=== PATIENT | male | born 1950 | race Caucasian/White ===

== ENCOUNTER 2016-08-17 08:38 | Outpatient (CLI) | payer OTHER | END 2016-08-17 08:39 | disposition critical access hospital (66) | DX: R53.1 Weakness (principal); W08.XXXA Fall from other furniture, initial encounter; Y92.009 Unspecified place in unspecified non-institutional (private) residence as the place of occurrence of the external cause | CPT/HCPCS: A0425; A0427 ==

== ENCOUNTER 2016-08-17 09:09 | Emergency (ER) | payer OTHER ==
[2016-08-17] MEDS ORDERED: SODIUM CHLORIDE 0.9% 1,000 ML IV ONE ×2 (09:33→10:56)
[2016-08-17] MEDS ORDERED: MECLIZINE 12.5 MG TABLET PO STA (09:34)
[2016-08-17] MEDS ORDERED: LORazepam 2 MG/ML SYRINGE IVP STA (09:36)
[2016-08-17] MEDS ORDERED: MECLIZINE 12.5 MG TABLET PO ONE (09:56)
[2016-08-17] MEDS ORDERED: LORazepam 2 MG/ML SYRINGE ONE (09:58)
== END 2016-08-17 14:39 | disposition home or self-care (01) ==
DX: R53.1 Weakness (principal); F10.20 Alcohol dependence, uncomplicated; W01.0XXA Fall on same level from slipping, tripping and stumbling without subsequent striking against object, initial encounter; Y92.013 Bedroom of single-family (private) house as the place of occurrence of the external cause; I44.4 Left anterior fascicular block; R94.31 Abnormal electrocardiogram [ECG] [EKG]; E78.00 Pure hypercholesterolemia, unspecified; F17.200 Nicotine dependence, unspecified, uncomplicated
CPT/HCPCS: 36415; 70450; 71010; 80053; 80320; 81003; 82550; 83690; 83735; 85025; 93005; 93010; 96361; 96374; 99284; A9270; J2060

== ENCOUNTER 2016-11-02 15:03 | Emergency (ER) | payer OTHER ==
[2016-11-02] MEDS ORDERED: SODIUM CHLORIDE 0.9% 1,000 ML IV ONE (15:25)
--- NOTE | 2016-11-02 15:27 | ED Physician Documentation ---
PD HPI HEAD INJURY - Stated complaint Stated Complaint: FALL - Chief complaint Chief Complaint: Neuro - History obtained from History obtained from: Patient, Friend (neighbor, who checked in on patient and found him down on floor with large laceration for upper forehead. Patient confused and not answering questions coherently.), EMS - History of Present Illness Mechanism of head injury: Fell (unknown reason as patient does not remember it.) Where head injury occurred: Home (he lives at home and does own ADLs. Neighbors check in on him periodically.) Timing - onset: Unknown Location of injury: Front (forehead) Quality of pain: Pain Associated symptoms: No: Nausea / vomiting, Neck pain, Paresthesias Symptoms improve with: Rest Symptoms worsen with: Palpation Contributing factors: Intoxicated (he says he drinks daily). No: Anticoagulated Recently seen: Not recently seen (seen in ED in July with weakness and fall, with elevated alcohol level and some shakiness.) Review of Systems Unable to obtain: Confused Cardiac: denies: Chest pain / pressure Respiratory: denies: Cough, Wheezing GI: denies: Abdominal Pain, Vomiting, Diarrhea, Bloody / black stool Musculoskeletal: denies: Neck pain, Back pain Neurologic: reports: Head injury. denies: Focal weakness, Numbness, Headache PD PAST MEDICAL HISTORY - Past Medical History Cardiovascular: High cholesterol GI: Other Musculoskeletal: Chronic back pain - Past Surgical History Past Surgical History: Yes Ortho: Spine surgery - Present Medications Home Medications: Ambulatory Orders Medication Instructions Recorded Confirmed No Known Home Medications [No 08/17/16 08/17/16 Known Home Medications] - Allergies Allergies/Adverse Reactions: Allergies Allergy/AdvReac Type Severity Reaction Status Date / Time No Known Drug Allergies Allergy Verified 08/17/16 09:23 - Living Situation Living Situation: reports: Alone Living Arrangement: reports: At home - Social History Does the pt smoke?: Yes Smoking Status: Current every day smoker Does the pt drink ETOH?: Yes ETOH Use: Beer Does the pt have substance abuse?: No - Family History Family history: reports: Unknown PD ED PE NORMAL - Vitals Vital signs reviewed: Yes - General General: Other (poor interaction with answering just simple questions with simple answers. Smell of alcholol on breath. He does have 4 cm laceration right frontal scalp so concern for concussive effect as well. ). No: Well developed/ nourished (frail and cachectic) - HEENT HEENT: PERRL. No: Dentition benign (poor dentition but no apparent new injury) - Neck Neck: Supple, no meningeal sign, No adenopathy, Other (he has spontaneous movement of the neck up and down without apparent pain. He is placed in cervical collar. ) - Cardiac Cardiac: RRR (mild tachycardia), No murmur - Respiratory Respiratory: Clear bilaterally, Other (no obvious chestwall deformity nor tenderness. ) - Abdomen Abdomen: Soft, Non tender - Male Male : Deferred - Rectal Rectal: Deferred - Back Back: No CVA TTP, No spinal TTP - Derm Derm: Normal color, Warm and dry - Extremities Extremities: No tenderness to palpate, Normal ROM s pain, No edema - Neuro Neuro: No motor deficit (he is wriggling around on cart, moving legs side to side and flexing at knees/hips. Not really following commands. ), No sensory deficit. No: Alert and oriented X 3 (oriented to person, not place nor time. ) Results - Vitals Vitals: Vital Signs - 24 hr 11/02/16 11/02/16 11/02/16 15:15 16:13 17:08 Temperature 36.5 C Heart Rate 117 H 90 91 Respiratory 20 18 16 Rate Blood Pressure 107/72 116/74 115/79 O2 Saturation 100 100 100 11/02/16 18:34 Temperature Heart Rate 70 Respiratory 16 Rate Blood Pressure 113/80 O2 Saturation 100 Oxygen O2 Source Room air - Labs Labs: Laboratory Tests 11/02/16 11/02/16 11/02/16 15:12 15:35 15:35 WBC 5.1 RBC 3.92 L Hgb 14.1 Hct 41.4 L MCV 105.5 H MCH 36.1 H MCHC 34.2 RDW 14.0 Plt Count 72 L MPV 7.6 Neut # 3.9 Lymph # 0.7 L Kimble # 0.5 Eos # 0.0 Baso # 0.1 Absolute Nucleated RBC 0.00 Nucleated RBCs 0.0 Sodium 137 Potassium 4.4 Chloride 100 L Carbon Dioxide 25 Anion Gap 12.0 BUN 7 Creatinine 0.6 Estimated GFR (MDRD) 134 Glucose 172 H POC Whole Bld Glucose 198 H Calcium 8.3 L Magnesium 1.9 Total Bilirubin 0.9 AST 117 H ALT 60 Alkaline Phosphatase 369 H Total Creatine Kinase Total Protein 6.3 L Albumin 3.3 Globulin 3.0 Albumin/Globulin Ratio 1.1 Lipase 14 L Ethyl Alcohol 363.0 11/02/16 15:35 WBC RBC Hgb Hct MCV MCH MCHC RDW Plt Count MPV Neut # Lymph # Kimble # Eos # Baso # Absolute Nucleated RBC Nucleated RBCs Sodium Potassium Chloride Carbon Dioxide Anion Gap BUN Creatinine Estimated GFR (MDRD) Glucose POC Whole Bld Glucose Calcium Magnesium Total Bilirubin AST ALT Alkaline Phosphatase Total Creatine Kinase 162 Total Protein Albumin Globulin Albumin/Globulin Ratio Lipase Ethyl Alcohol - Rads (name of study) head CT Radiology: Prelim report reviewed, EMP read contemporaneously (no ICH nor acute injury seen) spine CT Radiology: Prelim report reviewed (C1 bilateral laminar fractures with forward displacement of C1 on C2 on lateral view. ) PD MEDICAL DECISION MAKING - ED course Complexity details: reviewed results (CT head without bleed/injury. However C- spine with C1 unstable fracture, with intact spinal neuro exam (altered mentation on exam). ), re-evaluated patient (Patient given some Ativan for sedation so that he is not wriggling around. He is still with good airway and ventilation. He is lying still. Collar remains in place. Neuro exam still good in extremities. ), considered differential, d/w patient (to the best of his understanding with the intoxication and possible concussive effect. ), d/w library consultant (Dr. Quiroz, Spine surgery at [facility], to transfer to their ER for admission and surgery.) Departure - Departure Disposition: 02 Transfer Acute Care Hosp Clinical Impression: Cervical spine fracture Qualifiers: Encounter type: initial encounter Cervical vertebra fracture level: C1 Fracture type: closed Fracture morphology: other fracture Fracture alignment: displaced Qualified Code(s): S12.090A - Other displaced fracture of first cervical vertebra, initial encounter for closed fracture Scalp laceration Qualifiers: Encounter type: initial encounter Qualified Code(s): S01.01XA - Laceration without foreign body of scalp, initial encounter Alcohol intoxication Qualifiers: Complication of substance-induced condition: uncomplicated Qualified Code(s): F10.120 - Alcohol abuse with intoxication, uncomplicated Condition: Stable Record reviewed to determine appropriate education?: Yes Discharge Date/Time: 11/02/16 18:30
[2016-11-02] MEDS ORDERED: LORazepam 2 MG/ML SYRINGE IVP STA ×2 (15:42→15:53)
[2016-11-02] MEDS ORDERED: LORazepam 2 MG/ML SYRINGE ONE ×2 (15:43→15:54)
[2016-11-02 15:45] LABS: BASOPHILS # (AUTO) 0.1 10^3/uL (0.0-0.1); EOSINOPHILS % (AUTO) 0.1 %; HCT - HEMATOCRIT 41.4 % (42.0-52.0); HGB - HEMOGLOBIN 14.1 g/dL (14.0-18.0); LYMPHOCYTES # (AUTO) 0.7 10^3/uL (1.5-3.5); LYMPHOCYTES % (AUTO) 13.5 %; MEAN CORPUSCULAR HEMOGLOBIN 36.1 pg (27.0-31.0); MEAN CORPUSCULAR HGB CONC 34.2 g/dL (32.0-36.0); MEAN CORPUSCULAR VOLUME 105.5 fL (80.0-94.0); MEAN PLATELET VOLUME 7.6 fL (7.4-11.4); MONOCYTES # (AUTO) 0.5 10^3/uL (0.0-1.0); MONOCYTES % (AUTO) 9.8 %; NEUTROPHILS # (AUTO) 3.9 10^3/uL (1.5-6.6); NEUTROPHILS % (AUTO) 75.6 %; RED BLOOD COUNT 3.92 10^6/uL (4.70-6.10); UNCORRECTED WHITE BLOOD COUNT 5.1 x10^3/uL; WHITE BLOOD COUNT 5.1 x10^3/uL (4.8-10.8)
[2016-11-02 15:55] LABS: ALBUMIN/GLOBULIN RATIO 1.1 (1.0-2.2); BILIRUBIN,TOTAL 0.9 mg/dL (0.2-1.0); CALCIUM 8.3 mg/dL (8.5-10.3); CREATININE 0.6 mg/dL (0.6-1.2); MAGNESIUM 1.9 mg/dL (1.7-2.8); POTASSIUM 4.4 mmol/L (3.5-5.0); TOTAL PROTEIN 6.3 g/dL (6.7-8.2)
[2016-11-02] MEDS ORDERED: BUPIVACAINE 0.5%-EPI 1:200000 PF 10 ML VIAL SUBQ STA (15:59)
[2016-11-02] MEDS ORDERED: BUPIVACAINE 0.5%-EPI 1:200000 PF 30 ML VIAL ONE (16:22)
--- NOTE | 2016-11-02 16:35 | CT Preliminary Report ---
Exam: CT Head W/O IMPRESSION: 1. No acute intracranial CT abnormality. No evidence of hemorrhage or mass effect. 2. There is generalized volume loss. 3. There are right scalp lacerations without evidence of underlying fracture. [facility] SITE ID: [id number]
--- NOTE | 2016-11-02 16:38 | CT Report ---
EXAM: CT HEAD EXAM DATE: 11/02/2016 04:15 PM. CLINICAL HISTORY: Confusion COMPARISON: 08/17/2016. TECHNIQUE: Multiaxial CT images were obtained from the foramen magnum to the vertex. IV contrast: Non e. Reformats: Coronal. In accordance with CT protocol optimization, one or more of the following dose reduction techniques w ere utilized for this exam: automated exposure control, adjustment of mA and/or KV based on patient s ize, or use of iterative reconstructive technique. FINDINGS: Parenchyma: No intraparenchymal hemorrhage. No evidence of mass, midline shift or CT findings of acut e infarction. Li-white differentiation is distinct. Extraaxial Spaces: There is generalized volume loss. No subdural or epidural collections identified. Ventricles: The ventricles and cortical sulci are enlarged, consistent with age-related tissue loss. Sinuses: Imaged paranasal sinuses, orbits, and mastoids show no significant abnormality. Bones: No evidence of fracture or calvarial defect. Other: There is a right lateral scalp laceration. IMPRESSION: 1. No acute intracranial CT abnormality. No evidence of hemorrhage or mass effect. 2. There is generalized volume loss. 3. There are right scalp lacerations without evidence of underlying fracture. [facility] Referring Provider Line: [phone] SITE ID: [id number]
--- NOTE | 2016-11-02 17:18 | CT Preliminary Report ---
Exam: CT Cervical Spine W/O IMPRESSION: 1. Bilateral C1 nondisplaced laminar fractures 2. Base of dens fracture with posterior displacement and angulation of the dens and distraction of fr acture fragments by approximately 4 mm. Cannot exclude involvement of the foramina transversarium. 3. Disruption of the spinolaminar line at C1-C2 with offset of approximately 1.1 cm. Additional disru ption/subluxation of the right C1-C2 facet joint. 4. C7 superior endplate compression deformity age-indeterminate with ununited anterior superior apoph ysis versus chip fracture. 5. Progressive deformity/height loss of T1 and T2 since 2012, also of indeterminate age. 6. Degenerative changes including disk space narrowing C5-C6 and multilevel degenerative facet joint arthropathy. Critical results called to and confirmed with Dr. Jolly at 16:50 on 11/02/2016 [facility] SITE ID: [id number]
--- NOTE | 2016-11-02 17:21 | CT Report ---
EXAM: CT CERVICAL SPINE WITHOUT CONTRAST DATE: 11/02/2016 04:15 PM HISTORY: Fall and hit head. COMPARISONS: 11/19/2012 TECHNIQUE: Thin-section axial images were acquired of the cervical spine without contrast. Post-proce ssing: Coronal and sagittal reformats. Other: None. In accordance with CT protocol optimization, one or more of the following dose reduction techniques w ere utilized for this exam: automated exposure control, adjustment of mA and/or KV based on patient s ize, or use of iterative reconstructive technique. FINDINGS: There are bilateral nondisplaced laminar fractures of C1. There is a fracture of C2 at the base of the dens. The dens is displaced posteriorly by approximatel y 6-7 mm with distraction of 5-6 mm. The dens is also angled posteriorly by approximately 50 degrees. There is disruption of the spinal laminar line at the C1-C2 level, with approximately 1.1 cm of anterior displacement of C2. There is disruption of the ri ght C1-C2 lateral mass articulation with lateral subluxation of C2. Cannot exclude extension of fract ure lines into the foramen transversarium, particularly on the lateral. Anterior superior endplate compression deformity of C7 progressed since 2012, age-indeterminate with ununited anterior superior apophysis versus chip fracture. Mild superior endplate compression T1 slightly increased and progressive height loss of T2 since 201 3. Degenerative disk space narrowing C5-C6 with vacuum phenomenon. Remaining disk spaces grossly well ma intained. Mild degenerative retrolisthesis C5 with respect to C6 unchanged Scattered degenerative facet joint arthropathy at multiple levels. No significant prevertebral soft tissue swelling IMPRESSION: 1. Bilateral C1 nondisplaced laminar fractures 2. Base of dens fracture with posterior displacement and angulation of the dens and distraction of fr acture fragments by approximately 4 mm. Cannot exclude involvement of the foramina transversarium. 3. Disruption of the spinolaminar line at C1-C2 with offset of approximately 1.1 cm. Additional disru ption/subluxation of the right C1-C2 facet joint. 4. C7 superior endplate compression deformity age-indeterminate with ununited anterior superior apoph ysis versus chip fracture. 5. Progressive deformity/height loss of T1 and T2 since 2012, also of indeterminate age. 6. Degenerative changes including disk space narrowing C5-C6 and multilevel degenerative facet joint arthropathy. Critical results called to and confirmed with Dr. Jolly at 16:50 on 11/02/2016 [facility] Referring Provider Line: [phone] SITE ID: [id number]
[2016-11-02 18:36] VITALS: BP 113/80
== END 2016-11-02 18:30 | disposition short-term general hospital (02) ==
LOC: ED 15:03
DX: S12.090A Other displaced fracture of first cervical vertebra, initial encounter for closed fracture (principal); S01.81XA Laceration without foreign body of other part of head, initial encounter; W01.0XXA Fall on same level from slipping, tripping and stumbling without subsequent striking against object, initial encounter; Y92.018 Other place in single-family (private) house as the place of occurrence of the external cause; F10.129 Alcohol abuse with intoxication, unspecified; E78.00 Pure hypercholesterolemia, unspecified; F17.200 Nicotine dependence, unspecified, uncomplicated
CPT/HCPCS: 36415; 70450; 72125; 80053; 80320; 82550; 83690; 83735; 85025; 96361; 96372; 96374; 99285; J2060

== ENCOUNTER 2016-11-02 18:40 | Outpatient (CLI) | payer OTHER | END 2016-11-02 18:41 | disposition short-term general hospital (02) | LOC: EMS 18:40 | PROVIDERS: ATTEND Surgery | DX: S12.000A Unspecified displaced fracture of first cervical vertebra, initial encounter for closed fracture (principal); S01.01XA Laceration without foreign body of scalp, initial encounter; X58.XXXA Exposure to other specified factors, initial encounter | CPT/HCPCS: A0425; A0426 ==

== ENCOUNTER 2018-11-25 12:35 | Outpatient (CLI) | payer OTHER ==
--- NOTE | 2018-11-25 15:39 | Mammography Report ---
Reason: RT BREAST LUMP Procedure Date: 11/25/2018 Accession Number: [id number] / [id number] Procedure: NOAH - Diagnostic Dig Bilat CPT Code: FULL RESULT: EXAM: Diagnostic Dig Bilat DATE: 11/25/2018 1:37 PM CLINICAL HISTORY: Right breast lump, tender. TECHNIQUE: (B) - Bilateral CC and MLO views were obtained. Focused right breast ultrasound with comparison images on the left was performed. The CC projections were acquired with reversible positioning. The patient was severely kyphotic, best possible images are obtained. COMPARISON: None PARENCHYMAL PATTERN: (A) - The breast(s) demonstrate(s) scattered fibroglandular densities. FINDINGS: Increased right greater than left retroareolar density is noted. There are no separate suspicious masses, calcifications, or areas of distortion. Focused right breast ultrasound reveals a wider than tall hypoechoic tissue in an organizational pattern consistent with glandular tissue with echotexture and echogenicity as well as overall distribution pattern consistent when compared to the left side. The ultrasound images are therefore of typically benign right greater than left gynecomastia. IMPRESSION: Benign findings. BI-RADS category 2. RECOMMENDATION: (CLIN) - Clinical follow-up for symptoms is recommended. BI-RADS CATEGORY: (2) - Benign Findings. STANDARD QUALIFYING STATEMENTS: 1. This examination was not reviewed with the aid of Computer-Aided Detection (CAD). 2. A negative or benign imaging report should not preclude biopsy if clinically suspicious findings are present. 3. Dense breasts may obscure an underlying neoplasm. 4. This examination was reviewed without the aid of 3D breast imaging (tomosynthesis).
== END 2018-11-25 12:36 | disposition home or self-care (01) ==
LOC: DI 12:35
PROVIDERS: ATTEND Family Medicine
DX: N63.41 Unspecified lump in right breast, subareolar (principal)
CPT/HCPCS: 76642; 77066

== ENCOUNTER 2018-12-25 07:30 | Day surgery (SDC) | payer OTHER ==
[~2018-12-25 07:30] MED LIST: CYCLOPENTOLATE 1% OPHTH DROPS 2 ML ONE; KETOROLAC 0.45% OPHTH DROPS ONE; PHENYLEPHRINE 2.5% OPHTH 2 ML DROPS ONE; PROPARACAINE 0.5% OPHTH DROPS 15 ML ONE
[2018-12-25] MEDS ORDERED: MIDAZOLAM 2 MG/2 ML VIAL IVP ONE (07:31)
[2018-12-25] MEDS ORDERED: fentaNYL 100 MCG/2 ML VIAL IVP ONE (07:31)
[2018-12-25] MEDS ORDERED: KETOROLAC 0.45% OPHTH DROPS RIGHTEYE ONE (07:40)
[2018-12-25] MEDS ORDERED: PROPARACAINE 0.5% OPHTH DROPS 15 ML RIGHTEYE ONE (07:40)
[2018-12-25] MEDS ORDERED: CYCLOPENTOLATE 1% OPHTH DROPS 2 ML RIGHTEYE ONE (07:40)
[2018-12-25] MEDS ORDERED: PHENYLEPHRINE 2.5% OPHTH 2 ML DROPS RIGHTEYE ONE (07:40)
[2018-12-25] MEDS ORDERED: LACTATED RINGERS 500 ML IV ONE (08:00)
--- NOTE | 2018-12-25 08:00 | ANESTHESIA ---
Pre-Anesthesia VS, & Labs - Diagnosis Right senile combined cataract - Procedure Right phaco with IOL implant Height 6 ft Body Mass Index 41.8 - NPO >8 hours - Lab Results Lab results reviewed: No Home Medications and Allergies Home Medications: Ambulatory Orders Loratadine [Claritin] 10 mg PO DAILY 12/24/18 Naproxen Sodium 220 mg PO BID 12/24/18 Sertraline HCl [Zoloft] 20 mg PO DAILY 12/24/18 Tamsulosin HCl [Flomax] 0.4 mg PO DAILY 12/24/18 Loratadine [Claritin] 10 mg PO DAILY 12/24/18 Naproxen Sodium 220 mg PO BID 12/24/18 Sertraline HCl [Zoloft] 20 mg PO DAILY 12/24/18 Tamsulosin HCl [Flomax] 0.4 mg PO DAILY 12/24/18 Allergies/Adverse Reactions: Allergies Allergy/AdvReac Type Severity Reaction Status Date / Time No Known Drug Allergies Allergy Verified 12/24/18 10:38 Anes History & Medical History - Anesthetic History Anesthesia Complications: reports: No previous complications Family history of Anesthesia Complications: Denies Family history of Malignant Hyperthermia: Denies - Medical History Cardiovascular: reports: None Pulmonary: reports: None Gastrointestinal: reports: None Urinary: reports: Benign prostate hypertrophy Neuro: reports: Head injury Musculoskeletal: reports: Osteoarthritis, Chronic back pain, Other Endocrine/Autoimmune: reports: None Blood Disorders: reports: None Skin: reports: None Smoking Status: Current every day smoker Psychosocial: reports: No issues indicated (Diaphragmatic hernia?) - Surgical History General: Hiatal hernia repair Orthopedic: Spine surgery, Other (Neck surgery, possible fusion) Exam General: Alert Dental: WNL Mouth Opening: Greater than 4 Fingerbreadths Neck Mobility: Limited Mallampati classification: II Thyromental Distance: greater than 6 cm Respiratory: Lungs clear Cardiovascular: Other (Occasional skipped beat) Mental/Cognitive Status: Alert/Oriented X3 Cognitive Status: Within normal limits Plan Anesthesia Type: MAC Consent for Procedure(s) Verified and Reviewed: Yes Code Status: Attempt Resuscitation ASA classification: 3-Severe systemic disease Is this case an emergency?: No
[2018-12-25] MEDS ORDERED: BRIMONIDINE 0.2% OPHTH DROPS 5 ML OPTH ONE (08:41)
[2018-12-25] MEDS ORDERED: EPINEPHrine 1 MG/ML AMP IVP ONE (08:41)
[2018-12-25] MEDS ORDERED: BSS/LIDOCAINE/EPINEPHRINE 1 ML SYRINGE IO ONE (08:42)
[2018-12-25] MEDS ORDERED: TIMOLOL 0.5% OPHTH DROPS OPTH ONE (08:42)
[2018-12-25] MEDS ORDERED: VANCOMYCIN OPHTHALMI 8MG/0.8ML 8 MG/0.8 ML SYRINGE IO ONE ×2 (08:42→10:54)
[2018-12-25] MEDS ORDERED: CHONDR SULF/HYALURONATE SYRINGE IO ONE (08:42)
[2018-12-25] MEDS ORDERED: TRIAMCIN/MOXIFLOX OPHTHALMIC 0.6 ML VIAL IO ONE ×2 (08:43→10:52)
[2018-12-25 09:23] VITALS: BP 113/65
--- NOTE | 2018-12-25 09:36 | OPERATIVE REPORT ---
DATE OF SERVICE: 12/25/2018 Physician: Pa Spence MD PREOPERATIVE DIAGNOSIS: Visually significant cataract, right eye. This was his first cataract surgery. This was a complex surgery due to use of Flomax and likelihood of intraoperative floppy iris syndrome, necessitating the use of a Malyugin ring. POSTOPERATIVE DIAGNOSIS: Visually significant cataract, right eye. This was his first cataract surgery. This was a complex surgery due to use of Flomax and likelihood of intraoperative floppy iris syndrome, necessitating the use of a Malyugin ring. OPERATIVE PROCEDURE: Phacoemulsification with posterior chamber intraocular lens implant, right eye. SURGEON: Pa Spence MD ANESTHESIA: Monitored anesthesia care. COMPLICATIONS: None. OPERATIVE INDICATIONS: This is a 68-year-old man with progressive vision loss in the right eye due to 3-4+ nuclear sclerotic cataract. Best corrected visual acuity was 20/40, with glare to hand motion vision in the right eye. Indications for surgery are overall decrease in vision, difficulty seeing words on a computer screen, difficulty reading, difficulty seeing words, closed caption or game scores on TV, difficulty seeing street signs, difficulty driving in low light or at night, difficulty driving at night because of headlights from other vehicles, difficulty with glare or bright lights in any situation, and difficulty tracking a golf ball and decreased acuity with firearms. He was consented at length concerning risks and benefits of cataract surgery, after which he expressed a desire to proceed with surgery. OPERATIVE PROCEDURE: Patient was taken to OR #3 and placed under monitored anesthesia care. A surgical timeout was conducted confirming correct patient, correct procedure, and correct surgical site. He was given topical anesthesia and then prepped and draped in the usual sterile fashion. The eye was entered at the 12 and 9 o'clock positions. Intracameral Shugarcaine was injected into the anterior chamber, followed by Viscoat. A Malyugin Ring was inserted into the anterior chamber and engaged the pupillary margin at 4 points to enlarge the pupil and stabilize the iris. A continuous-tear curvilinear capsulorrhexis was performed. The nucleus was hydrodissected and phacoemulsified. The cortex was evacuated using automated infusion and aspiration. Provisc was injected in the capsular bag and a 21.5 diopter intraocular lens inserted in the bag. The Malyugin ring that had been inserted previously was disengaged from the pupil margin and removed from the anterior chamber. Approximately 0.8 mL of a mixture of triamcinolone, moxifloxacin and vancomycin was injected subconjunctivally in the superior quadrant for infection and inflammation prophylaxis. I and A was used to evacuate the viscoelastic materials. The eye was inflated to physiologic pressure using balanced salt solution and found to be watertight. Patient was taken from the operating room in good condition and given postoperative instructions. TD: 12/25/2018 09:03 MTDDavid
[2018-12-25] MEDS ORDERED: TIMOLOL 0.5% OPHTH DROPS ONE (10:53)
[2018-12-25] MEDS ORDERED: EPINEPHrine 1 MG/ML AMP ONE (10:53)
[2018-12-25] MEDS ORDERED: BRIMONIDINE 0.2% OPHTH DROPS 5 ML ONE (10:53)
[2018-12-25] MEDS ORDERED: BSS/LIDOCAINE/EPINEPHRINE 1 ML SYRINGE ONE (10:53)
== END 2018-12-25 07:31 | disposition home or self-care (01) ==
LOC: SDS 07:30
PROVIDERS: ATTEND Ophthalmology
PROC: 08RJ3JZ Replacement of Right Lens with Synthetic Substitute, Percutaneous Approach (ICD-10-PCS; principal; 2018-12-25 08:30)
DX: H25.11 Age-related nuclear cataract, right eye (principal); R61 Generalized hyperhidrosis; N40.0 Benign prostatic hyperplasia without lower urinary tract symptoms; F17.200 Nicotine dependence, unspecified, uncomplicated; Z79.899 Other long term (current) drug therapy; Z98.1 Arthrodesis status; Z79.82 Long term (current) use of aspirin
CPT/HCPCS: 66982; A9270; J3490; V2632

== ENCOUNTER 2019-02-19 07:04 | Day surgery (SDC) | payer OTHER ==
[2019-02-19] MEDS ORDERED: MIDAZOLAM 2 MG/2 ML VIAL IVP ONE (07:05)
[2019-02-19] MEDS ORDERED: VANCOMYCIN OPHTHALMI 8MG/0.8ML 8 MG/0.8 ML SYRINGE IO ONE ×2 (07:22→08:55)
[2019-02-19] MEDS ORDERED: TRIAMCIN/MOXIFLOX OPHTHALMIC 0.6 ML VIAL IO ONE ×2 (07:22→08:55)
[2019-02-19] MEDS ORDERED: TIMOLOL 0.5% OPHTH DROPS ONE (07:22)
[2019-02-19] MEDS ORDERED: BSS/LIDOCAINE/EPINEPHRINE 1 ML SYRINGE ONE (07:22)
[2019-02-19] MEDS ORDERED: BRIMONIDINE 0.2% OPHTH DROPS 5 ML ONE (07:22)
[2019-02-19] MEDS ORDERED: LACTATED RINGERS 500 ML IV ONE (07:29)
[2019-02-19] MEDS ORDERED: PHENYLEPHRINE 2.5% OPHTH 2 ML DROPS LEFTEYE ONE (07:30)
[2019-02-19] MEDS ORDERED: KETOROLAC 0.45% OPHTH DROPS LEFTEYE ONE (07:30)
[2019-02-19] MEDS ORDERED: CYCLOPENTOLATE 1% OPHTH DROPS 2 ML LEFTEYE ONE (07:30)
[2019-02-19] MEDS ORDERED: PROPARACAINE 0.5% OPHTH DROPS 15 ML LEFTEYE ONE ×2 (07:30→08:55)
--- NOTE | 2019-02-19 07:49 | ANESTHESIA ---
Pre-Anesthesia VS, & Labs - Diagnosis left nuclear sclerotic cataract - Procedure left cataract extraction with lens implant Vital Signs: Temp Pulse Resp BP Pulse Ox 36.5 C 81 18 124/66 98 02/19/19 07:32 02/19/19 07:32 02/19/19 07:32 02/19/19 07:32 02/19/19 07:32 Height 5 ft 5 in Weight (kg) 53 kg Body Mass Index 41.8 - NPO >8 hours Home Medications and Allergies Loratadine [Claritin] 10 mg PO DAILY 12/24/18 Naproxen Sodium 220 mg PO BID 12/24/18 Sertraline HCl [Zoloft] 20 mg PO DAILY 12/24/18 Tamsulosin HCl [Flomax] 0.4 mg PO DAILY 12/24/18 Allergies/Adverse Reactions: Allergies Allergy/AdvReac Type Severity Reaction Status Date / Time No Known Drug Allergies Allergy Verified 12/24/18 10:38 Anes History & Medical History - Anesthetic History Anesthesia Complications: reports: No previous complications - Medical History Cardiovascular: reports: None Pulmonary: reports: None Gastrointestinal: reports: None Urinary: reports: Benign prostate hypertrophy Neuro: reports: Head injury Musculoskeletal: reports: Osteoarthritis, Chronic back pain, Other Endocrine/Autoimmune: reports: None Blood Disorders: reports: None Skin: reports: None Smoking Status: Current every day smoker - Surgical History General: Hiatal hernia repair Orthopedic: Spine surgery, Other Exam General: Alert Dental: WNL Mallampati classification: II Thyromental Distance: greater than 6 cm Respiratory: Lungs clear Cardiovascular: Regular rate, Normal S1, Normal S2 Plan Anesthesia Type: MAC Consent for Procedure(s) Verified and Reviewed: Yes Code Status: Attempt Resuscitation ASA classification: 2-Mild systemic disease Is this case an emergency?: No
[2019-02-19] MEDS ORDERED: BRIMONIDINE 0.2% OPHTH DROPS 5 ML OPTH ONE (08:53)
[2019-02-19] MEDS ORDERED: BSS/LIDOCAINE/EPINEPHRINE 1 ML SYRINGE IO ONE (08:54)
[2019-02-19] MEDS ORDERED: TIMOLOL 0.5% OPHTH DROPS OPTH ONE (08:54)
[2019-02-19] MEDS ORDERED: EPINEPHrine 1 MG/ML AMP IVP ONE (08:54)
[2019-02-19] MEDS ORDERED: CHONDR SULF/HYALURONATE SYRINGE IO ONE (08:54)
[2019-02-19 09:43] VITALS: BP 114/68
--- NOTE | 2019-02-19 10:00 | OPERATIVE REPORT ---
DATE OF SERVICE: 02/19/2019 Physician: Pa Spence MD PREOPERATIVE DIAGNOSIS: Visually significant cataract, left eye, complex due to small pupil requiring pupil expansion with Malyugin ring. Cataract surgery was performed on the right eye on 01/09/2019, again, using the Malyugin ring. POSTOPERATIVE DIAGNOSIS: Visually significant cataract, left eye, complex due to small pupil requiring pupil expansion with a Malyugin ring. Cataract surgery was performed on the right eye on 01/09/2019, again using the Malyugin ring. PROCEDURE: Phacoemulsification with posterior chamber intraocular lens implant, left eye. SURGEON: Pa Spence MD ANESTHESIA: Monitored anesthesia care. COMPLICATIONS: None. OPERATIVE INDICATIONS: This is a 69-year-old man with progressive vision loss in the left eye due to 3 to 4+ nuclear sclerotic cataract. Best corrected visual acuity was 20/25, with glare to hand motion vision in the left eye. Indications for surgery are overall decrease in vision, difficulty reading, difficulty seeing words, closed caption or game scores on TV, difficulty seeing street signs, difficulty driving in low light or at night, difficulty driving at night because of headlights from other vehicles, difficulty with glare or bright lights in any situation, and decreased acuity with firearms. He was consented at length concerning risks and benefits of cataract surgery, after which he expressed his desire to proceed with surgery. OPERATIVE PROCEDURE: Patient was taken into OR #3 and placed under monitored anesthesia care. A surgical timeout was conducted confirming correct patient, correct procedure, and correct surgical site. He has pretty severe kyphosis, so he had to be put into maximum Trendelenburg to flatten out his face, which required me to do the operation sort of side saddle. He was given topical anesthesia, and prepped and draped in the usual sterile fashion. The eye was entered at the 6 and 3 o'clock positions. Intracameral Shugarcaine was injected into the anterior chamber, followed by Viscoat. A Malyugin ring was then injected into the anterior chamber, and engaged the pupil at 4 points to enlarge the pupil. A continuous-tear curvilinear capsulorrhexis was performed. The nucleus was hydrodissected and phacoemulsified. The cortex was evacuated using automated infusion and aspiration. Provisc was injected in the capsular bag, and a 22.5 diopter intraocular lens was inserted into the bag. The Malyugin ring was then disengaged from the pupil margin and removed from the anterior chamber. Approximately 0.25 mL of a mixture of triamcinolon and moxifloxacin was injected transsclerally into the vitreous followed by approximately 0.6 mL of a mixture of triamcinolone, moxifloxacin and vancomycin injected subconjunctivally in the superior quadrant for infection and inflammation prophylaxis. I and A was used to evacuate the viscoelastic materials. The eye was inflated to physiologic pressure using balanced salt solution and found to be watertight. Patient was taken from the operating room in good condition and given postoperative instructions. TD: 02/19/2019 09:19 MARK
== END 2019-02-19 07:05 | disposition home or self-care (01) ==
LOC: SDS 07:04
PROVIDERS: ATTEND Ophthalmology
PROC: 08RK3JZ Replacement of Left Lens with Synthetic Substitute, Percutaneous Approach (ICD-10-PCS; principal; 2019-02-19 08:30)
DX: H25.12 Age-related nuclear cataract, left eye (principal); F17.200 Nicotine dependence, unspecified, uncomplicated; M40.209 Unspecified kyphosis, site unspecified; F41.9 Anxiety disorder, unspecified; F32.9 Major depressive disorder, single episode, unspecified; N40.0 Benign prostatic hyperplasia without lower urinary tract symptoms; G89.29 Other chronic pain; M54.9 Dorsalgia, unspecified; M54.2 Cervicalgia; M19.90 Unspecified osteoarthritis, unspecified site; Z79.891 Long term (current) use of opiate analgesic
CPT/HCPCS: 66982; A9270; J3490; V2632

== ENCOUNTER 2023-03-26 13:55 | Outpatient (CLI) | payer OTHER ==
--- NOTE | 2023-03-26 19:08 | CT Report ---
PROCEDURE: CHEST WO INDICATIONS: NODULE OF LUNG TECHNIQUE: Noncontrast 1mm axial images were acquired from the pulmonary apices to the posterior costophrenic an gles. Axial 5 mm soft tissue kernel reconstructions were performed as well as 8 mm axial MIP and cor onal and sagittal 5 mm reformations. For radiation dose reduction, the following was used: automate d exposure control, adjustment of mA and/or kV according to patient size. COMPARISON: None FINDINGS: Image quality: Excellent. Lungs and pleura: No consolidation. No pleural effusions. No pneumothorax. No suspicious pulmonary n odules which require follow up. Mediastinum: Heart size is normal. No pericardial effusion. No large vessel abnormality. No mediastin al adenopathy by size criteria. Chest wall and lower neck: Thyroid is unremarkable. No axillary or supraclavicular adenopathy by size . Bones: There are innumerable compression fractures present involving the entire thoracic spine as wel l as L1-L3. There is been remote percutaneous cement fixation of T8. Healed sternal fracture. Upper Abdomen: Unremarkable. IMPRESSION: 1. No suspicious pulmonary nodules. No evidence of acute pulmonary process. 2. There are fractures of all visualized thoracic and lumbar vertebral bodies. Additionally, there is fracture of the sternum. These are all chronic findings. Comment: If this patient has not had a previous workup for multiple myeloma, recommend multiple myelo ma workup. Reviewed by: Ovidio Mcghee MD on 03/26/2023 7:07 PM PST Approved by: Ovidio Mcghee MD on 03/26/2023 7:07 PM PST Station ID: [id number]
== END 2023-03-26 13:56 | disposition home or self-care (01) ==
LOC: DI 13:55
PROVIDERS: ATTEND Registered Nurse
DX: R91.1 Solitary pulmonary nodule (principal); M48.56XD Collapsed vertebra, not elsewhere classified, lumbar region, subsequent encounter for fracture with routine healing; M48.54XD Collapsed vertebra, not elsewhere classified, thoracic region, subsequent encounter for fracture with routine healing

== ENCOUNTER 2023-04-13 12:33 | Outpatient (CLI) | payer OTHER ==
[~2023-04-13 12:33] MED LIST changes: -CYCLOPENTOLATE 1% OPHTH DROPS 2 ML ONE; +GADOTERATE MEGLUMINE 2.5 MMOL/5 ML VIAL ONE; +GADOTERATE MEGLUMINE 5 MMOL/10 ML VIAL ONE; -KETOROLAC 0.45% OPHTH DROPS ONE; -PHENYLEPHRINE 2.5% OPHTH 2 ML DROPS ONE; -PROPARACAINE 0.5% OPHTH DROPS 15 ML ONE
[2023-04-13] MEDS ORDERED: GADOTERATE MEGLUMINE 5 MMOL/10 ML VIAL IVP ONE (14:58)
--- NOTE | 2023-04-16 08:38 | MRI Report ---
PROCEDURE: CERVICAL SPINE W/WO INDICATIONS: MULTIPLE FX OF BONE CONTRAST: CLARISCAN 11 ML TECHNIQUE: Noncontrast sagittal T1 spin echo and T2 fast spin echo, sagittal STIR, sagittal PD fast spin echo, f oraminal oblique sagittal T2 fast spin echo, axial gradient echo or T2 fast spin echo through the cer vical spine. After the administration of contrast, sagittal and axial T1 spin echo with fat saturati on through the cervical spine. COMPARISON: CT cervical spine 11/02/2016. FINDINGS: Image quality: Excellent. Alignment and curvature: There is normal bony alignment. Marrow: Chronic fracture deformity of the dens with posterior displacement of the dens fragment. Post surgical changes from C1-C2 posterior spinal fixation. Mild chronic compression deformity of the supe rior endplate of C7. Spinal cord: Visualized spinal cord is normal in size, without white matter lesions. No suspicious intramedullary enhancement. No cerebellar tonsillar herniation. Paraspinous soft tissues: No paravertebral masses or suspicious enhancement. C1-C2: Chronic fracture deformity results in moderate central canal stenosis. C2-C3: Disc desiccation. Postsurgical changes. No central canal stenosis. Facet and uncovertebral ar thropathy. At least mild bilateral neuroforaminal stenosis. C3-C4: Disc desiccation. No central canal stenosis. Facet and uncovertebral arthropathy. Moderate b ilateral neuroforaminal stenosis. C4-C5: Disc desiccation. No central canal stenosis. Facet and uncovertebral arthropathy. Severe righ t and moderate left neuroforaminal stenosis. C5-C6: Severe disc desiccation and height loss. Mild posterior disc osteophyte complex without centr al canal stenosis. Facet and uncovertebral arthropathy. Severe right and moderate left neuroforaminal stenosis. C6-C7: Disc desiccation. No central canal stenosis. Facet and uncovertebral arthropathy. Mild bilate ral neuroforaminal stenosis. C7-T1: Disc desiccation. No central canal stenosis. Facet and uncovertebral arthropathy. No signific ant neuroforaminal stenosis. IMPRESSION: 1.Chronic fracture deformity of the dens with posterior displacement of the dens fragment resulting i n moderate central canal stenosis. 2.Multilevel degenerative changes of the cervical spine as described above. 3.There is severe right neuroforaminal stenosis at C4-C5 and C5-C6. Multilevel moderate neuroforamina l stenosis. Reviewed by: Immanuel Payton MD on 04/16/2023 8:37 AM PST Approved by: Immanuel Payton MD on 04/16/2023 8:37 AM PST Station ID: [id number]
--- NOTE | 2023-04-16 08:50 | MRI Report ---
PROCEDURE: THORACIC SPINE W/WO INDICATIONS: MULTIPLE FX OF BONE CONTRAST: CLARISCAN 11 ML TECHNIQUE: Noncontrast sagittal T1 spin echo and T2 fast spin echo, sagittal STIR, axial T1 and T2 fast spin ech o through the thoracic spine. After the administration of contrast, axial and sagittal T1 spin echo with fat saturation through the thoracic spine. COMPARISON: None. FINDINGS: Image quality: Excellent. Alignment and curvature: Exaggerated kyphosis of the thoracic spine.. Marrow: Multilevel compression deformities throughout the thoracic spine including severe T2, modera te at T4, severe at T6, mild at T8 status post vertebroplasty, mild at T10, T11 and T12. There is mil d edema at T4 which may represent an acute or subacute component. Spinal cord: Visualized spinal cord is of normal signal and size, without abnormal enhancement. Paraspinous soft tissues: No paravertebral masses or abnormal enhancement. Miscellaneous: Multilevel disc desiccation and height loss with small posterior disc bulges and mini mal retropulsion at several levels. No significant central canal stenosis. Central canal and foramina appear widely patent at all scanned levels. IMPRESSION: 1.Multiple compression deformities throughout the thoracic spine as described above with moderate kyp hosis. There is mild edema associated with the T4 compression fracture which may represent an acute o r subacute component. Other fractures are chronic in appearance. 2.Multilevel degenerative changes of the thoracic spine without significant central canal or neurofor aminal stenosis. Reviewed by: Immanuel Payton MD on 04/16/2023 8:49 AM PST Approved by: Immanuel Payton MD on 04/16/2023 8:49 AM PST Station ID: [id number]
== END 2023-04-13 12:34 | disposition home or self-care (01) ==
LOC: DI 12:33
PROVIDERS: ATTEND Registered Nurse
DX: M48.54XA Collapsed vertebra, not elsewhere classified, thoracic region, initial encounter for fracture (principal); M47.814 Spondylosis without myelopathy or radiculopathy, thoracic region; M48.04 Spinal stenosis, thoracic region; M48.52XD Collapsed vertebra, not elsewhere classified, cervical region, subsequent encounter for fracture with routine healing; M47.812 Spondylosis without myelopathy or radiculopathy, cervical region; M48.02 Spinal stenosis, cervical region
CPT/HCPCS: 72156; 72157; A9575

== ENCOUNTER 2023-05-15 14:42 | Outpatient (CLI) | payer OTHER ==
[~2023-05-15 14:42] MED LIST changes: +GADOTERATE MEGLUMINE 10 MMOL/20 ML VIAL ONE; -GADOTERATE MEGLUMINE 2.5 MMOL/5 ML VIAL ONE; -GADOTERATE MEGLUMINE 5 MMOL/10 ML VIAL ONE
[2023-05-15 15:14] LABS: CREATININE 1.1 mg/dL (0.6-1.3)
--- NOTE | 2023-05-15 16:04 | DEXA Report ---
PROCEDURE: Dexa Spine and/or Hip INDICATIONS: MULTIPLE PATHOLOGICAL FRACTURES OF BONE TECHNIQUE: Dual energy x-ray absorptiometry (DXA) was performed on a [email or web address] System. Regions measur ed are the AP Spine, femoral neck, and if needed forearm. COMPARISON: None FINDINGS: Lumbar Spine: Bone Mineral Density 1.034 g/cm/cm,T score -1.5. Osteopenia. Left Femoral Neck: Bone Mineral Density 0.743 g/cm/cm, T score -2.5. Osteoporosis. Left Hip: Bone Mineral Density 0.821 g/cm/cm,T score -1.9. Osteopenia. (T score greater or equal to -1.0: NORMAL) (T score from -1.1 to -2.4: OSTEOPENIA) (T score less than or equal to -2.5 to: OSTEOPOROSIS) Impression: By WHO criteria, this patient has osteoporosis. Patients with diagnosis of osteoporosis or osteopenia should have regular bone mineral density assess ment. For those eligible for Medicare, routine testing is allowed once every 2 years. Testing frequ ency can be increased for patients who have rapidly progressing disease or for those who are receivin g medical therapy to restore bone mass. Reviewed by: Jah Charles MD on 05/15/2023 4:02 PM PST Approved by: Jah Charles MD on 05/15/2023 4:02 PM PST Station ID: [id number]
[2023-05-15] MEDS ORDERED: GADOTERATE MEGLUMINE 10 MMOL/20 ML VIAL IVP ONE (17:44)
--- NOTE | 2023-05-15 18:35 | MRI Report ---
PROCEDURE: LUMBAR SPINE W/WO INDICATIONS: MULTIPLE FX OF BONE CONTRAST: 11.4ml clariscan TECHNIQUE: Noncontrast sagittal T1 spin echo and T2 fast spin echo, sagittal STIR, axial T1 and T2 fast spin ech o through the lumbar spine. In cases with scoliosis, additional coronal T2 fast spin echo may be per formed. After the administration of contrast, sagittal and axial T1 spin echo with fat saturation th rough the lumbar spine. COMPARISON: Correlation is made with overlapping portions of thoracic spine MRI, 04/13/2023. FINDINGS: Image quality: Excellent. Alignment and curvature: There is normal bony alignment. Marrow: Marrow is of normal overall signal. Chronic central compression of arteries can be seen at each visualized level, T11-L5. No posterior displacement of fracture fragments can be seen. No acute appearing vertebral body compression fractures. No suspicious marrow enhancement. Spinal cord: Conus medullaris terminates at the L1 level. Visualized spinal cord demonstrates nilson l signal, without suspicious enhancement. Paraspinous soft tissues: No paravertebral masses or abnormal enhancement. T12-L1: No significant abnormality is seen. L1-L2: The disc height and disc signal are well preserved. Mild disc bulge is seen, which is sligh tly eccentric to the left. Moderate bilateral neural foraminal narrowing is seen. No significant wilfredo tral canal narrowing is seen. L2-L3: The disc height and disc signal are well preserved. Mild to moderate disc bulge is seen. M ild facet hypertrophy is seen. Moderate bilateral neural foraminal narrowing is seen. Mild centra l canal narrowing is seen. L3-L4: The disc height is well-preserved. There is loss of disc signal seen. Mild disc bulge is se en. Mild facet hypertrophy is seen. There is mild left-sided and moderate right-sided neuroforaminal narrowing. Minimal central canal narrowing is seen. L4-L5: The disc height is well-preserved. There is loss of disc signal seen. Moderate disc bulge is seen, with a mild central disc protrusion. Mild facet hypertrophy is seen. There is mild to moderat e right-sided and moderate left-sided neuroforaminal narrowing. Minimal central canal narrowing is se en. L5-S1: The disc height is well-preserved. There is loss of disc signal seen. Mild disc bulge is se en. Mild facet hypertrophy is seen. Mild to moderate bilateral neuroforaminal narrowing can be see n. Mild central canal narrowing is seen. IMPRESSION: Remote compression deformities can be seen at each lumbar level. No abnormal enhancement can be seen. Multiple levels of underlying lumbar spine degenerative change can be seen. Reviewed by: Vitaly Marrero MD on 05/15/2023 5:33 PM [place] Approved by: Vitaly Marrero MD on 05/15/2023 5:33 PM [facility] Station ID: [id number]
== END 2023-05-15 14:43 | disposition home or self-care (01) ==
LOC: LAB 14:42
PROVIDERS: ATTEND Registered Nurse
DX: M84.40XA Pathological fracture, unspecified site, initial encounter for fracture (principal); M81.0 Age-related osteoporosis without current pathological fracture; M47.816 Spondylosis without myelopathy or radiculopathy, lumbar region; M47.817 Spondylosis without myelopathy or radiculopathy, lumbosacral region
CPT/HCPCS: 36415; 72158; 77080; 82565; A9575

== ENCOUNTER 2023-12-27 09:21 | Day surgery (SDC) | payer OTHER ==
[2023-12-27] MEDS: LACTATED RINGERS 1,000 ML IV ONE ×2 (09:50→11:44)
[2023-12-27] MEDS ORDERED: PROPOFOL 500 MG/50 ML 500 MG/50 ML VIAL ONE (09:59)
[2023-12-27] MEDS ORDERED: LIDOCAINE-MPF 2% 5 ML VIAL ONE (10:03)
--- NOTE | 2023-12-27 10:23 | ANESTHESIA ---
Pre-Anesthesia VS, & Labs - Diagnosis rectal bleeding, positive cologuard - Procedure colonscopy Vital Signs: Temp Pulse Resp BP Pulse Ox O2 Flow Rate 36.8 C 88 19 136/88 H 100 12/27/23 09:40 12/27/23 09:40 12/27/23 09:40 12/27/23 09:40 12/27/23 09:40 Height: 5 ft 5 in Weight (kg): 53.9 kg Body Mass Index: 19.8 BMI Classification: Normal - NPO Other (prep as directed) Home Medications and Allergies Home Medications: Ambulatory Orders Simvastatin [Zocor] 40 mg PO DAILY 12/26/23 Loratadine [Claritin] 10 mg PO DAILY 12/24/18 Naproxen Sodium 220 mg PO BID 12/24/18 Sertraline HCl [Zoloft] 20 mg PO DAILY 12/24/18 Tamsulosin HCl [Flomax] 0.4 mg PO DAILY 12/24/18 Simvastatin [Zocor] 40 mg PO DAILY 12/26/23 Allergies/Adverse Reactions: Allergies Allergy/AdvReac Type Severity Reaction Status Date / Time No Known Drug Allergies Allergy Verified 12/24/18 10:38 Anes History & Medical History - Anesthetic History Anesthesia Complications: reports: No previous complications - Medical History Cardiovascular: reports: High cholesterol Pulmonary: reports: None Gastrointestinal: reports: Hemorrhoids Urinary: reports: Benign prostate hypertrophy Neuro: reports: Head injury Musculoskeletal: reports: Chronic back pain, Other Endocrine/Autoimmune: reports: None Blood Disorders: reports: None Skin: reports: None Smoking Status: Current every day smoker - Surgical History General: reports: Other Eyes Ears Nose Throat (EENT): reports: Cataracts Orthopedic: reports: Spine surgery Plan Anesthesia Type: Total IV Consent for Procedure(s) Verified and Reviewed: Yes Code Status: Attempt Resuscitation ASA classification: 2-Mild systemic disease Is this case an emergency?: No
--- NOTE | 2023-12-27 10:47 | HISTORY & PHYSICAL EXAMINATION ---
Chief Complaint - Chief Complaint Chief Complaint: here for colonoscopy History of Present Illness - History Obtained From Records Reviewed: yes History obtained from: pt Exam Limitations: hard of hearing - History of Present Illness HPI Comment/Other: positive cologuard. hx hemorrhoid problems for years History - Past Medical History Cardiovascular: reports: High cholesterol Respiratory: reports: None Neuro: reports: Head injury Endocrine/Autoimmune: reports: None GI: reports: Hemorrhoids : reports: Benign prostate hypertrophy HEENT: reports: None Psych: reports: Depression Musculoskeletal: reports: Chronic back pain, Other Derm: reports: None MRSA Hx?: No - Past Surgical History General: reports: Other Ortho: reports: Spine surgery HEENT: reports: Cataracts Meds/Allgy - Home Medications Home Medications: Ambulatory Orders Medication Instructions Recorded Confirmed Loratadine [Claritin] 10 mg PO DAILY 12/24/18 12/26/23 Naproxen Sodium 220 mg PO BID 12/24/18 12/26/23 Sertraline HCl [Zoloft] 20 mg PO DAILY 12/24/18 12/26/23 Tamsulosin HCl [Flomax] 0.4 mg PO DAILY 12/24/18 12/26/23 Simvastatin [Zocor] 40 mg PO DAILY 12/26/23 12/26/23 - Allergies Allergies/Adverse Reactions: Allergies Allergy/AdvReac Type Severity Reaction Status Date / Time No Known Drug Allergies Allergy Verified 12/24/18 10:38 Review of Systems - Other Findings Other Findings: 10 pt ros as above otherwise unremarkable Exam - Vital Signs Vital Signs: Vital Signs x48h Temp Pulse Resp BP Pulse Ox 12/27/23 09:40 36.8 C 88 19 136/88 H 100 - Physical Exam General Appearance: positive: Alert Eyes Bilateral: positive: PERRL Neck: positive: No JVD, Trachea midline Respiratory: positive: No respiratory distress Cardiovascular: positive: Regular rate & rhythm Abdomen: positive: No distention Neurologic/Psychiatric: positive: Oriented x3 Conclusion/Plan - Problem List (1) Abnormal stool test Conclusion/Plan: positive cologuard. plan colonoscopy. parq held and consent obtained
[2023-12-27 12:19] VITALS: BP 151/75; O2SAT 100
--- NOTE | 2023-12-27 17:09 | ANESTHESIA POST OP EVALUATION ---
Anesthesia Post Eval - Post Anesthesia Eval Vitals: Last Vital Signs Temp 36.2 C L 12/27/23 12:15 Pulse 78 12/27/23 12:15 Resp 16 12/27/23 12:15 BP 151/75 H 12/27/23 12:15 Pulse Ox 100 12/27/23 12:15 O2 Flow Rate CV Function Including HR & BP: Stable Pain Control: Satisfactory Nausea & Vomiting: Negative Mental Status: Baseline Respiratory Status: Airway Patent Hydration Status: Satisfactory Anesthesia Complications: None
== END 2023-12-27 09:22 | disposition home or self-care (01) ==
LOC: SDS 09:21
PROVIDERS: ATTEND Surgery
PROC: 0DBM8ZZ Excision of Descending Colon, Via Natural or Artificial Opening Endoscopic (ICD-10-PCS; 2023-12-27)
PROC: 0DBH8ZZ Excision of Cecum, Via Natural or Artificial Opening Endoscopic (ICD-10-PCS; principal; 2023-12-27 10:45)
DX: R19.5 Other fecal abnormalities (principal); K63.5 Polyp of colon; D12.4 Benign neoplasm of descending colon; D12.0 Benign neoplasm of cecum; K57.30 Diverticulosis of large intestine without perforation or abscess without bleeding; F17.200 Nicotine dependence, unspecified, uncomplicated
CPT/HCPCS: 45380; 45385; J7120